=== PATIENT | female | born 1950 | race Caucasian/White ===

== ENCOUNTER 2021-03-01 14:24 | Outpatient (REF) | payer MEDICARE, BC, SELFPAY ==
[2021-03-01 19:54] LABS: Anion Gap 7.6 mmol/L (3-11); BUN 18 mg/dL (7-18); CO2 32.4 mmol/L (21.0-32.0); CREATININE 0.6 mg/dL (0.55-1.02); Calcium 9.4 mg/dL (8.5-10.1); Chloride 106 mmol/L (98-107); Glucose 132 mg/dL (74-106); Sodium 146 mmol/L (136-145)
[2021-03-01 20:17] LABS: COMMENT (LAB VIEW ONLY) 71.19 mg/dL; Microalb ug/mg Crea 36.7 ug/mg Cr
== END 2021-03-01 14:25 | disposition home or self-care (01) ==
LOC: NCHCN 14:24
PROVIDERS: Visit Provider Nurse Practitioner Family
DX: E11.9 Type 2 diabetes mellitus without complications (principal); I10 Essential (primary) hypertension
CPT/HCPCS: 80048; 82043; 82570

== ENCOUNTER 2021-06-30 10:38 | Outpatient (REF) | payer MEDICARE, BC, SELFPAY ==
[2021-06-30 22:18] LABS: ALT 30 U/L (14-59); AST 15 U/L (15-37); Albumin 4.3 g/dL (3.4-5.0); Alkaline Phosphatase 92 U/L (46-116); Anion Gap 11.4 mmol/L (3-11); BUN 23 mg/dL (7-18); Bilirubin, Total 0.6 mg/dL (0.2-1.0); CO2 25.6 mmol/L (21.0-32.0); CREATININE 0.6 mg/dL (0.55-1.02); Calcium 9.1 mg/dL (8.5-10.1); Calculated LDL 88 mg/dL (<100); Chloride 102 mmol/L (98-107); Cholesterol 187 mg/dL (<200); Glucose 127 mg/dL (74-106); HDL Cholesterol 47 mg/dL (40-60); Potassium 4.1 mmol/L (3.5-5.1); Sodium 139 mmol/L (136-145); Total Protein 7.5 g/dL (6.4-8.2); Triglyceride 264 mg/dL (<150)
== END 2021-06-30 10:39 | disposition home or self-care (01) ==
LOC: NCHCN 10:38
PROVIDERS: Visit Provider Nurse Practitioner Family
DX: E11.65 Type 2 diabetes mellitus with hyperglycemia (principal)
CPT/HCPCS: 80053; 80061

== ENCOUNTER 2021-11-30 10:39 | Outpatient (REF) | payer MEDICARE, BC, SELFPAY ==
[2021-11-30 20:16] LABS: BUN 17 mg/dL (7-18); CREATININE 0.6 mg/dL (0.55-1.02); Calcium 9.1 mg/dL (8.5-10.1); Chloride 102 mmol/L (98-107); Glucose 110 mg/dL (74-106); Potassium 4.4 mmol/L (3.5-5.1); Sodium 142 mmol/L (136-145)
== END 2021-11-30 10:40 | disposition home or self-care (01) ==
LOC: NCHCN 10:39
PROVIDERS: Visit Provider Nurse Practitioner Family
DX: E11.65 Type 2 diabetes mellitus with hyperglycemia (principal)
CPT/HCPCS: 80048

== ENCOUNTER 2022-08-29 13:10 | Outpatient (REF) | payer MEDICARE, BC, SELFPAY ==
[2022-08-29 20:41] LABS: ALT 26 U/L (14-59); AST 14 U/L (15-37); Albumin 3.9 g/dL (3.4-5.0); Alkaline Phosphatase 84 U/L (46-116); Anion Gap 9.2 mmol/L (3-11); BUN 27 mg/dL (7-18); Bilirubin, Total 0.5 mg/dL (0.2-1.0); CO2 29.8 mmol/L (21.0-32.0); CREATININE 0.6 mg/dL (0.55-1.02); Calcium 8.7 mg/dL (8.5-10.1); Calculated LDL 79 mg/dL (<100); Chloride 104 mmol/L (98-107); Cholesterol 167 mg/dL (<200); Glucose 152 mg/dL (74-106); HDL Cholesterol 51 mg/dL (40-60); Sodium 143 mmol/L (136-145); Total Protein 7.2 g/dL (6.4-8.2); Triglyceride 188 mg/dL (<150)
[2022-08-29 21:00] LABS: Vitamin D 25 Total 54.7 ng/mL (30-100)
[2022-08-31 10:00] LABS: Hepatitis C Ab w Rflx HCV PCR Negative (Negative)
== END 2022-08-29 13:11 | disposition home or self-care (01) ==
LOC: NCHCN 13:10
PROVIDERS: PCP Nurse Practitioner Family; Visit Provider Nurse Practitioner Family
DX: E11.65 Type 2 diabetes mellitus with hyperglycemia (principal); I10 Essential (primary) hypertension; E78.5 Hyperlipidemia, unspecified; E55.9 Vitamin D deficiency, unspecified; Z11.59 Encounter for screening for other viral diseases
CPT/HCPCS: 80053; 80061; 82306; 86803

== ENCOUNTER 2023-05-29 09:38 | Outpatient (REF) | payer MEDICARE, BC, SELFPAY ==
[2023-05-29 20:25] LABS: ALT 30 U/L (14-59); AST 18 U/L (15-37); Albumin 3.7 g/dL (3.4-5.0); Alkaline Phosphatase 121 U/L (46-116); Anion Gap 9.4 mmol/L (3-11); BUN 18 mg/dL (7-18); Bilirubin, Total 0.6 mg/dL (0.2-1.0); CO2 29.6 mmol/L (21.0-32.0); CREATININE 0.7 mg/dL (0.55-1.02); Calcium 9.5 mg/dL (8.5-10.1); Chloride 101 mmol/L (98-107); Cholesterol 193 mg/dL (<200); Estimated GFR 92.41 (mL/min/1.73m2); Glucose 178 mg/dL (74-106); HDL Cholesterol 47 mg/dL (40-60); Potassium 3.9 mmol/L (3.5-5.1); Sodium 140 mmol/L (136-145); Total Protein 7.9 g/dL (6.4-8.2); Triglyceride 441 mg/dL (<150)
[2023-05-29 20:38] LABS: LDL CHOLESTEROL 89 mg/dL (<100)
[2023-05-29 20:40] LABS: Hemoglobin A1C 7.8 % (<5.7)
== END 2023-05-29 09:39 | disposition home or self-care (01) ==
LOC: NCHCN 09:38
PROVIDERS: PCP Nurse Practitioner Family; Visit Provider Nurse Practitioner Family
DX: E11.65 Type 2 diabetes mellitus with hyperglycemia (principal); E78.5 Hyperlipidemia, unspecified; I10 Essential (primary) hypertension
CPT/HCPCS: 80053; 80061; 83721; 83036

== ENCOUNTER 2023-09-04 14:10 | Outpatient (REF) | payer MEDICARE, BC, SELFPAY ==
[2023-09-04 19:12] LABS: Abs Immature Grans 0.03 10^3/uL (0.0-0.06); Absolute Basophil Count 0.07 10^3/uL (0.0-0.2); Absolute Eosinophil Count 0.17 10^3/uL (0.0-0.7); Absolute Lymphocyte Count 2.25 10^3/uL (1.2-3.4); Absolute Monocyte Count 0.89 10^3/uL (0.1-0.8); Absolute Neutrophil Count 5.57 10^3/uL (1.2-6.7); Basophils % 0.8 %; Eosinophils % 1.9 %; HCT 38.7 % (36.0-46.0); HGB 12.5 g/dL (11.2-15.7); Immature Grans % 0.3 %; Lymphocytes % 25.1 %; MCH 28.4 pg (27.0-33.0); MCHC 32.3 % (32.0-36.0); MCV 88 fL (80-95); MPV 9.5 fL (8.0-11.0); Monocytes % 9.9 %; Platelet Count 433 10^3/uL (130-400); RDW 13.9 % (11.7-14.6); RDW-SD 44.7 fL; WBC 8.98 10^3/uL (4.4-10.8)
[2023-09-04 19:22] LABS: ALT 17 U/L (14-59); AST 12 U/L (15-37); Albumin 3.8 g/dL (3.4-5.0); Alkaline Phosphatase 187 U/L (46-116); BUN 28 mg/dL (7-18); Bilirubin, Total 0.5 mg/dL (0.2-1.0); CREATININE 0.6 mg/dL (0.55-1.02); Calcium 9.7 mg/dL (8.5-10.1); Calculated LDL 71 mg/dL (<100); Chloride 101 mmol/L (98-107); Cholesterol 154 mg/dL (<200); Glucose 141 mg/dL (74-106); HDL Cholesterol 48 mg/dL (40-60); Potassium 4.6 mmol/L (3.5-5.1); Sodium 135 mmol/L (136-145); Total Protein 8.2 g/dL (6.4-8.2); Triglyceride 177 mg/dL (<150)
== END 2023-09-04 14:11 | disposition home or self-care (01) ==
LOC: NCHCN 14:10
PROVIDERS: PCP Nurse Practitioner Family; Visit Provider Nurse Practitioner Family
DX: I10 Essential (primary) hypertension (principal); R22.9 Localized swelling, mass and lump, unspecified; E78.5 Hyperlipidemia, unspecified
CPT/HCPCS: 80053; 80061; 85025

== ENCOUNTER → 2023-09-05 03:17 | Outpatient (CLI) | payer MEDICARE, BC, SELFPAY ==
--- NOTE | 2023-09-05 10:45 | DI.RAD_ITS ---
Exam(s) XR RIBS RT PA CHEST 3V CLINICAL HISTORY: RIB PAIN, PLEURODYNIA,R07.81. COMPARISON: No exams were available for comparison TECHNIQUE:: PA and lateral views of the chest and four views of the right ribs were performed. FINDINGS: LUNGS:Right upper lung volume loss and consolidation. No pleural effusion or pneumothorax is seen. HEART: Normal. MEDIASTINUM: Normal. BONES: No displaced rib fracture is seen. No bony destructive lesion is seen. Hardware lower cervica l spine and right humeral head. IMPRESSION: 1. No rib abnormality identified. 2. Significant right upper lobe volume loss and consolidation. The findings could represent pneumoni a however malignancy is not excluded. Follow-up examination is recommended following treatment. Unexpected findings
== END ==
PROVIDERS: PCP Nurse Practitioner Family; Visit Provider Nurse Practitioner Family
DX: R07.81 Pleurodynia (principal)
CPT/HCPCS: 71046; 71100

== ENCOUNTER → 2023-09-22 03:25 | Outpatient (CLI) | payer MEDICARE, BC, SELFPAY ==
--- NOTE | 2023-09-22 | DI.CT_ITS ---
Exam(s) CT CHEST W EXAM: CT CHEST W CLINICAL HISTORY: ABNL FINDINGS ON XR 09/04 R93.89 TECHNIQUE: Imaging Protocol: Axial computed tomography images with coronal and sagittal reformatted images were created and reviewed CONTRAST MATERIAL: Intravenous: Omnipaque 350Contrast volume:70 mL. COMPARISON: CR XR RIBS RT PA CHEST 3V from 09/05/2023 FINDINGS: Tracheobronchial tree: Patent where visualized. Pulmonary parenchyma: Centrilobular emphysematous changes are present in the lungs. There are multip le bilateral pulmonary nodules. The largest on the right is in the middle lobe measures 6 mm. (Seri es 5, image 313). The largest on the left is in the left lower lobe laterally and measures 9 mm. (S eries 5 measures 325). There is now complete consolidation of the right upper lobe there is narrowin g of the right upper lobe bronchus concerning for a central obstructing mass. There is a moderate si ze right pleural effusion and subjacent infiltrate in the right lower lobe which may represent atelec tasis or pneumonia. There is a ground-glass infiltrate seen in the right middle lobe. Mediastinum and Adriana: There is mediastinal adenopathy. There is a 2.1 cm lymph node anterior to the trachea (series 5, image 149). There is right hilar, subcarinal and AP window all adenopathy present . The esophagus is unremarkable. Thyroid gland: Unremarkable. Pleura: There is no left pleural effusion. No pneumothorax. Heart: The heart is not dilated. Coronary artery calcification is present. No pericardial effusion. Aorta: Thoracic aorta non-dilated. There is no evidence of dissection. Atherosclerotic calcification is present. Pulmonary arteries: The peripheral pulmonary arteries are not opacified well enough for evaluation of pulmonary emboli. No large central pulmonary embolus is present. There is narrowing of the pulmona ry arteries and pulmonary veins to the right upper lobe. Upper abdomen: There is a 0.8 cm hypodense lesion in the left lobe of the liver (series 5, image 461 ). No adrenal mass is seen. Left nephrolithiasis. Lymph nodes: No significant axillary adenopathy. Bones: Within normal limits for the patient's age. No aggressive osseous lesions are present. Soft tissues: There is a 9 mm subcutaneous nodule overlying the left scapular body (series 5, image 2 22). There also appears to be a subcutaneous nodule on the right edge of the film overlying the infe rior aspect of the right scapula. (Series 5, image 304). IMPRESSION: 1. Complete consolidation involving the right upper lobe with narrowing of the right upper lobe bronc hus, pulmonary artery and pulmonary vein. The findings are concerning for central obstructing mass. Bronchogenic carcinoma is considered. 2. Multiple pulmonary nodules and mediastinal adenopathy suspicious for metastatic disease. 3. Complete consolidation the right upper lobe likely reflecting postobstructive atelectasis and/or p neumonia. Ground-glass infiltrate in the right middle lobe. 4. 0.8 cm hypodense lesion in the left lobe of the liver. Given the findings in the chest metastatic disease should be considered. A CT scan of the abdomen and pelvis is recommended for further evalua tion. 5. Moderate size right pleural effusion and subjacent infiltrate which may represent atelectasis or p neumonia. 6. Two subcutaneous nodules in the posterior chest. Unexpected findings RADIATION DOSE DELIVERED: 507.78mGy.cm Total DLP DATA REPOSITORY: All CT scans at this facility are submitted to the National Radiology Data Registry (NRDR) Dose Index Registry (DIR) with the [employer] ([employer]). RADIATION OPTIMIZATION: All CT scans at this facility use at least one of these dose optimization te chniques: automated exposure control; mA and/or kV adjustment per patient size (includes targeted exa ms where dose is matched to clinical indication); or iterative reconstruction.
[2023-09-22] MEDS: Normal Saline - Diluent 50 ML VIAL IJ (14:04)
[2023-09-22] MEDS: Omnipaque 350 MG/ML 100 ML BTL IJ (14:07)
[2023-09-22] MEDS: Normal Saline Flush 10 ML SYR IVP (14:10)
== END ==
PROVIDERS: PCP Nurse Practitioner Family; Visit Provider Nurse Practitioner Family
DX: R91.8 Other nonspecific abnormal finding of lung field (principal)
CPT/HCPCS: 71260; J3490

== ENCOUNTER 2023-09-25 16:23 | Outpatient (REF) | payer MEDICARE, BC, SELFPAY ==
[2023-09-25 19:14] LABS: Abs Immature Grans 0.04 10^3/uL (0.0-0.06); Absolute Basophil Count 0.04 10^3/uL (0.0-0.2); Absolute Eosinophil Count 0.19 10^3/uL (0.0-0.7); Absolute Lymphocyte Count 1.67 10^3/uL (1.2-3.4); Absolute Monocyte Count 1.13 10^3/uL (0.1-0.8); Absolute Neutrophil Count 6.57 10^3/uL (1.2-6.7); Basophils % 0.4 %; HCT 34.1 % (36.0-46.0); HGB 10.9 g/dL (11.2-15.7); Immature Grans % 0.4 %; Lymphocytes % 17.3 %; MCH 27.9 pg (27.0-33.0); MCV 87 fL (80-95); MPV 9.2 fL (8.0-11.0); Monocytes % 11.7 %; Neutrophils % 68.2 %; Platelet Count 423 10^3/uL (130-400); RBC 3.91 10^6/uL (3.93-5.22); RDW 14.2 % (11.7-14.6); RDW-SD 44.8 fL; WBC 9.64 10^3/uL (4.4-10.8)
[2023-09-25 19:28] LABS: ALT 17 U/L (14-59); AST 15 U/L (15-37); Alkaline Phosphatase 313 U/L (46-116); Anion Gap 9.2 mmol/L (3-11); BUN 20 mg/dL (7-18); Bilirubin, Total 0.5 mg/dL (0.2-1.0); CO2 30.8 mmol/L (21.0-32.0); CREATININE 0.9 mg/dL (0.55-1.02); Calcium 9.5 mg/dL (8.5-10.1); Chloride 103 mmol/L (98-107); Estimated GFR 68.35 (mL/min/1.73m2); Glucose 176 mg/dL (74-106); Potassium 4.3 mmol/L (3.5-5.1); Sodium 143 mmol/L (136-145); Total Protein 7.9 g/dL (6.4-8.2)
== END 2023-09-25 16:24 | disposition home or self-care (01) ==
LOC: NCHCN 16:23
PROVIDERS: PCP Nurse Practitioner Family; Visit Provider Nurse Practitioner Family
DX: R06.09 Other forms of dyspnea (principal); R16.0 Hepatomegaly, not elsewhere classified; R05.8 Other specified cough
CPT/HCPCS: 80053; 85025; 87070; 87205